=== PATIENT | female | born 2000 | race Caucasian/White ===

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

== ENCOUNTER 2024-11-22 22:23 | Emergency (ER) | payer OTHER ==
[2024-11-22 22:44] VITALS: BP 142/69; PULSE 64; RESP 18; TEMP 99.5; BMI 37.1
[2024-11-22] MEDS ORDERED: ACETAMINOPHEN 325 MG TABLET (FP) ONE (23:01)
[2024-11-22] MEDS ORDERED: IBUPROFEN 400 MG TABLET (FP) PO ONE (23:02)
[2024-11-23 01:45] LABS: HEMATOCRIT 39.3 % (32.4-45.2); HEMOGLOBIN 12.8 GM/dL (10.7-15.3); MCH 26.7 pg (25.7-33.7); MCHC 32.7 g/dl (32.0-36.0); MEAN CELL VOLUME 81.7 fl (80-96); MEAN PLT VOLUME 7.6 fl (7.5-11.1); PLATELET COUNT 307 10^3/uL (134-434); RBC 4.81 M/mm3 (3.60-5.2); RDW 13.5 % (11.6-15.6); WHITE BLOOD COUNT 12.1 K/mm3 (4.0-10.0)
[2024-11-23 02:10] LABS: POTASSIUM 3.9 mmol/L (3.5-5.1)
[2024-11-23 02:12] LABS: BLOOD UREA NITROGEN 16.8 mg/dL (7-18); CALCIUM 9.3 mg/dL (8.5-10.1)
[2024-11-23 02:16] LABS: CREATININE 0.8 mg/dL (0.55-1.3)
[2024-11-23 02:17] LABS: BILIRUBIN,TOTAL 0.6 mg/dL (0.2-1); TOT PROT 7.7 g/dl (6.4-8.2)
== END 2024-11-23 05:22 | disposition home or self-care (01) ==
LOC: JER 22:23
DX: S70.02XA Contusion of left hip, initial encounter (principal); R07.89 Other chest pain; R10.9 Unspecified abdominal pain; V49.50XA Passenger injured in collision with unspecified motor vehicles in traffic accident, initial encounter
CPT/HCPCS: 36415; 70450-TC; 71046-TC-FY; 71260-TC; 72125-TC; 74177-TC; 80053; 84703; 85027; 99285-25; Q9967